=== PATIENT | female | born 2000 | race Caucasian/White ===

== ENCOUNTER 2020-06-16 16:45 | Outpatient (REF) | payer MEDICAID, SELFPAY | END 2020-06-16 16:46 | disposition home or self-care (01) | LOC: HO.LNP 16:45 | PROVIDERS: Visit Provider Hospitalist | DX: Z20.828 Contact with and (suspected) exposure to other viral communicable diseases (principal); R50.9 Fever, unspecified | CPT/HCPCS: U0003 ==

== ENCOUNTER 2021-11-15 12:25 | Outpatient (REF) | payer MEDICAID, SELFPAY ==
[2021-11-15 13:43] LABS: Estimated Average Glucose 85 mg/dL; Hemoglobin A1c % 4.6 %
[2021-11-15 14:00] LABS: Lithium 0.33 mmol/L (0.60-1.20)
[2021-11-15 14:09] LABS: Anion Gap 11 (12-20); Blood Urea Nitrogen 9 mg/dL (9-16); Calcium 9.8 mg/dL (8.4-10.2); Carbon Dioxide 25 mmol/L (22-29); Chloride 106 mmol/L (96-108); Cholesterol 160 mg/dL; Estimated Glomerular Filt Rate > 60; Glucose Random 89 mg/dL (60-115); HDL Cholesterol 61 mg/dL; LDL Cholesterol Calculated 89 mg/dl; Potassium 4.6 mmol/L (3.3-5.1); Sodium 137 mmol/L (135-145); Triglycerides 52 mg/dL
[2021-11-15 14:31] LABS: Thyroid Stimulating Hormone 4.04 uIU/mL (0.32-4.0)
[2021-11-15 15:10] LABS: T4 Thyroxine 6.5 ug/dL (4.5-12.0)
[2021-11-16 17:57] LABS: Triiodothyronine T3 Total 91 ng/dL (76-181)
== END 2021-11-15 12:26 | disposition home or self-care (01) ==
LOC: HO.LAB 12:25
PROVIDERS: PCP Internal Medicine; Visit Provider Nurse Practitioner
DX: Z79.899 Other long term (current) drug therapy (principal)
CPT/HCPCS: 36415; 80048; 80061; 80178; 83036; 84436; 84443; 84480

== ENCOUNTER → 2025-04-10 00:58 | Outpatient (BNV) | payer MEDICAID, SELFPAY | PROVIDERS: Emergency Provider Emergency Medicine; Visit Provider Radiology Neuroradiology | DX: M79.671 Pain in right foot (principal) | CPT/HCPCS: 73620 ==

== ENCOUNTER 2025-04-10 01:38 | Emergency (ER) | payer MEDICAID, SELFPAY ==
--- NOTE | ~2025-04-10 | XR_ITS ---
CLINICAL HISTORY: pain 3 view left foot Comparison: None provided Findings: Accessory ossicle adjacent to the cuboid. No acute displaced fracture. No dislocation. No retained metallic foreign body. IMPRESSION: No acute fracture or dislocation by initial radiographs. This document has been electronically signed by: Barron Shaw MD on 04/10/2025 03:06:00
[2025-04-10 01:46] VITALS: BP 108/65; BP 116/63; PULSE 64; PULSE 74; RESP 16; TEMP 36.7; O2SAT 100; O2SAT 99; BMI 23.0
[2025-04-10 01:51] VITALS: BP 108/65; PULSE 64; RESP 16; TEMP 36.7; O2SAT 100
--- NOTE | 2025-04-10 03:15 | ED.GENADULT ---
HPI - General Adult General Chief complaint: Extremity Injury, Lower Stated complaint: L Foot Pain Time Seen by Provider: 04/10/25 02:39 Source: patient Limitations: no limitations History of Present Illness ED Provider: Stephanie Turner PA-C HPI narrative: 24-year-old female presents with left foot pain. Patient states she was ?walking all day?. Now has pain on the top of the foot. Denies redness or swelling, no trauma. Related Data Home Medications ?Medication ?Instructions ?Recorded ?Confirmed No Known Home Meds 06/16/20 06/16/20 Allergies Allergy/AdvReac Type Severity Reaction Status Date / Time sulfamethoxazole (From Allergy Rash Verified 04/10/25 01:50 Bactrim) trimethoprim (From Bactrim) Allergy Rash Verified 04/10/25 01:50 Review of Systems Review of Systems: Yes all other systems are reviewed and are negative Constitutional: Constitutional: Denies fatigue and Denies fever(s) Musculoskeletal: Musculoskeletal: Denies arthralgias and Denies joint swelling Integumentary/Breasts: Skin/Breast: Denies erythema Endocrine: Endocrine: Denies fatigue [facility] Past Medical History Attestation statement: The following information was validated with the patient. Social History Social History Smoked in Last 30 Days: Yes Use of substances other than those prescribed or required for medical reasons: Yes Substance Use Type: Marijuana Advance Directives: No Advance Directives Information Provided: No Do you have a plan to hurt others: No Plan Physical Exam ED Vital Signs: Vital Signs - 24 hr 04/10/25 01:46 04/10/25 01:51 Temperature 98.0 F 98.0 F Pulse Rate 64 64 Respiratory Rate 16 16 Blood Pressure 108/65 108/65 Pulse Oximetry 100 100 Oxygen Delivery Method Room Air Room Air BMI result Body Mass Index 23.0 Const Other: Alert Orientation/consciousness: patient oriented x3 Resp Effort & Inspection: normal respiratory effort Cardio Other: Normal peripheral perfusion Skin Other: Warm dry no rash Neuro General: patient oriented x3, gait normal, no focal motor deficits and CN's II-XI intact bilaterally Extrem Other: No deformity, no swelling no erythema Psych Other: Calm cooperative Medical Decision Making Medical Decision Making MDM Narrative: 24-year-old female presents with left foot pain. Patient states she was ?walking all day?. Now has pain on the top of the foot. Denies redness or swelling, no trauma. No chronic issues History: Per patient I have considered the following differential diagnoses: Fracture, dislocation, contusion, sprain Plan: X-ray ordered from triage it is negative. I have independently reviewed the following tests: X-ray left foot:Findings: Accessory ossicle adjacent to the cuboid. No acute displaced fracture. No dislocation. No retained metallic foreign body. IMPRESSION: No acute fracture or dislocation by initial radiographs. Differential Diagnosis Differential Diagnoses: The differential diagnosis associated with the presentation includes See MDM Admission/Observation Consideration of admission/observation: Escalation of care including admission/observation considered Not applicable Radiology Impression Discussion of test interpretation with radiology: I have reviewed the radiologist's reading. Discharge Plan Discharge Clinical Impression: Acute pain of left foot Patient Disposition: Home, Self-Care Instructions: Arthralgia (ED) Additional Instructions: The x-ray of your foot was negative for fracture or dislocation. You likely have discomfort secondary to wearing sandals. Prescriptions: No Action No Known Home Meds Print Language: Ken[place]
[2025-04-10 04:12] VITALS: BP 99/58; PULSE 70; TEMP 36.8; O2SAT 97
[2025-04-10 04:19] VITALS: BP 99/58; PULSE 70; RESP 16; TEMP 36.8; O2SAT 97
== END 2025-04-10 04:19 | disposition home or self-care (01) ==
PROVIDERS: Emergency Provider Emergency Medicine
DX: M79.672 Pain in left foot (principal)
CPT/HCPCS: 73620; 99283; 99284